=== PATIENT | female | born 1985 | race Caucasian/White ===

== ENCOUNTER 2017-08-31 05:25 | Inpatient (IN) | payer MEDICAID, OTHER ==
[2017-08-31] MEDS ORDERED: OXYTOCIN 30 UNITS/LR 500 ML IV (08:30)
[2017-08-31] MEDS ORDERED: METHYLERGONOVINE 0.2 MG INJ IM (08:30)
[2017-08-31] MEDS ORDERED: MISOPROSTOL 200 MCG TAB PR (08:30)
[2017-08-31] MEDS ORDERED: BUTORPHANOL 1 MG INJ IV (08:30)
[2017-08-31] MEDS ORDERED: BUTORPHANOL 2 MG INJ IV (08:30)
[2017-08-31] MEDS ORDERED: LIDOCAINE 1% (MPF) 30 ML INJ INJ (08:30)
[2017-08-31] MEDS ORDERED: CARBOPROST 250 MCG INJ IM (08:30)
[2017-08-31] MEDS: LACTATED RINGER'S 1,000 ML IV ×4 (08:36→13:13)
[2017-08-31 08:46] LABS: ADD MAN DIFF? NO
[2017-08-31 08:57] LABS: BASOPHILS % 0.3 % (0.0-2.0); EOSINOPHILS % 0.2 % (0.0-7.0); HEMATOCRIT 37.2 % (37.0-47.0); HEMOGLOBIN 11.7 g/dl (12.0-16.0); LYMPHOCYTES # 2.7 10^3/ul (0.8-2.9); LYMPHOCYTES % 20.7 % (15.0-51.0); MEAN CORPUSCULAR HEMOGLOBIN 27.4 pg (29.0-33.0); MEAN CORPUSCULAR HGB CONC 31.5 g/dl (32.0-37.0); MEAN CORPUSCULAR VOLUME 87.1 fl (82.0-101.0); MEAN PLATELET VOLUME 12.2 fl (7.4-10.4); MONOCYTE # 0.4 10^3/ul (0.3-0.9); MONOCYTES % 3.3 % (0.0-11.0); NEUTROPHIL # 9.7 10^3/ul (1.6-7.5); PLATELET COUNT 231 10^3/UL (140-415); RED BLOOD COUNT 4.27 10^6/ul (4.20-5.40); RED CELL DISTRIBUTION WIDTH 13.8 % (11.5-14.5)
[2017-08-31 09:08] LABS: INR 0.87; PROTIME 11.9 Sec (11.9-14.9); PT RATIO 0.9
[2017-08-31] MEDS ORDERED: FENTAnyl 2MCG/ML-ROPIV 0.2% 100 ML (10:20)
[2017-08-31] MEDS ORDERED: NALOXONE (0.4 MG/ML) INJ IV (14:00)
[2017-08-31] MEDS ORDERED: FENTAnyl 2MCG/ML-ROPIV 0.2% 100 ML BAG EPI (14:00)
[2017-08-31] MEDS: OXYTOCIN 30 UNITS/LR 500 ML IV ×3 (15:07→23:15)
[2017-08-31] MEDS ORDERED: OXYCODONE/ASPIRIN (4.88/325) TAB PO ×2 (16:30)
[2017-08-31] MEDS ORDERED: DIBUCAINE 1% 30 GM OINT PR (16:30)
[2017-08-31] MEDS ORDERED: ACETAMINOPHEN 325 MG TAB PO (16:30)
[2017-08-31] MEDS ORDERED: ONDANSETRON 4 MG INJ IV (16:30)
[2017-08-31] MEDS ORDERED: HYDROCODONE/APAP (5/325) TAB PO ×2 (16:30)
[2017-08-31] MEDS: BENZOCAINE 20% 56 ML SPRAY TOP (19:06)
[2017-08-31] MEDS: WITCH HAZEL/GLYCERIN PAD PR (19:06)
[2017-08-31] MEDS: LANOLIN 7 GM TUBE TOP (19:06)
[2017-08-31] MEDS: IBUPROFEN 600 MG TAB PO (19:07)
[2017-08-31 19:44] LABS: RAPID PLASMA REAGIN NONREACTIVE (NR)
[2017-08-31] MEDS: SENNA/DOCUSATE NA (8.6MG/50MG) TAB PO (21:14)
[2017-09-01] MEDS: IBUPROFEN 600 MG TAB PO ×5 (00:26→23:35)
[2017-09-01 08:11] LABS: ADD MAN DIFF? NO
[2017-09-01 08:17] LABS: WHITE BLOOD COUNT 10.7 10^3/ul (4.8-10.8)
[2017-09-01 08:17] LABS: BASOPHILS % 0.3 % (0.0-2.0); EOSINOPHILS % 0.2 % (0.0-7.0); HEMATOCRIT 29.1 % (37.0-47.0); HEMOGLOBIN 9.3 g/dl (12.0-16.0); LYMPHOCYTES # 2.7 10^3/ul (0.8-2.9); LYMPHOCYTES % 25.4 % (15.0-51.0); MEAN CORPUSCULAR HEMOGLOBIN 27.7 pg (29.0-33.0); MEAN CORPUSCULAR VOLUME 86.6 fl (82.0-101.0); MEAN PLATELET VOLUME 11.9 fl (7.4-10.4); MONOCYTE # 0.5 10^3/ul (0.3-0.9); MONOCYTES % 4.2 % (0.0-11.0); NEUTROPHIL # 7.4 10^3/ul (1.6-7.5); NEUTROPHILS % 69.2 % (39.0-77.0); PLATELET COUNT 159 10^3/UL (140-415); RED BLOOD COUNT 3.36 10^6/ul (4.20-5.40); RED CELL DISTRIBUTION WIDTH 13.9 % (11.5-14.5)
[2017-09-01] MEDS: SENNA/DOCUSATE NA (8.6MG/50MG) TAB PO ×2 (08:29→21:00)
[2017-09-02] MEDS: IBUPROFEN 600 MG TAB PO ×2 (05:52→11:57)
[2017-09-02] MEDS: MEASLES,MUMPS,RUBELLA VACCINE INJ SC* (09:00)
[2017-09-02] MEDS: SENNA/DOCUSATE NA (8.6MG/50MG) TAB PO (09:23)
== END 2017-09-02 13:00 | disposition home or self-care (01) | DRG 775 ==
LOC: OBT 05:25 → L-D 05:25 → OBT 08:00 → L-D 08:00 → PP1 17:01
PROVIDERS: Obstetrics & Gynecology
PROC: 10E0XZZ Delivery of Products of Conception, External Approach (ICD-10-PCS; principal; 2017-08-31)
PROC: 0HQ9XZZ Repair Perineum Skin, External Approach (ICD-10-PCS; 2017-08-31)
DX: O70.0 First degree perineal laceration during delivery (principal); Z3A.39 39 weeks gestation of pregnancy; Z37.0 Single live birth
CPT/HCPCS: 62319; 85025; 85610; 85730; 86592; 86850; 86900; 86901

== ENCOUNTER 2017-12-10 06:33 | Day surgery (SDC) | payer MEDICAID ==
[2017-12-10] MEDS: BUPIVACAINE 0.25%/EPI (SDV) 30 ML INJ INJ
[~2017-12-10 06:33] MED LIST: CEFAZOLIN 2 GM/50 ML (PMX) 50 ML IVPB; LACTATED RINGER'S 1,000 ML IV*; SOD CHLORIDE 0.9% 1,000 ML IV
[2017-12-10] MEDS ORDERED: BUPIVACAINE 0.25%/EPI (MDV) 50 ML VIAL INJ (06:51)
[2017-12-10] MEDS ORDERED: LIDOCAINE 2% (SDV) 5 ML INJ (07:00)
[2017-12-10] MEDS ORDERED: PROPOFOL 200 MG INJ (07:00)
[2017-12-10] MEDS ORDERED: ROCURONIUM 50 MG INJ (07:00)
[2017-12-10] MEDS ORDERED: BUPIVACAINE 0.5% (SDV) 30 ML INJ (07:00)
[2017-12-10] MEDS ORDERED: CEFAZOLIN 1 GM INJ (07:00)
[2017-12-10] MEDS ORDERED: HYDROmorphONE 2 MG/ML SYG (08:02)
[2017-12-10] MEDS ORDERED: ONDANSETRON 4 MG INJ (08:19)
[2017-12-10] MEDS ORDERED: DEXAMETHASONE 4 MG/ML 1 ML INJ (08:19)
[2017-12-10] MEDS ORDERED: MIDAZOLAM 1 MG/ML 2 ML INJ (08:22)
[2017-12-10] MEDS ORDERED: ROPIVACAINE 0.5 % 30 ML VIAL (08:37)
[2017-12-10] MEDS ORDERED: SUGAMMADEX SODIUM 200 MG/2 ML VIAL IV (08:47)
[2017-12-10] MEDS ORDERED: FENTAnyl 50 MCG/ML VIAL (09:17)
[2017-12-10] MEDS ORDERED: KETOROLAC 30 MG INJ (09:19)
[2017-12-10] MEDS: KETOROLAC 30 MG INJ IV (09:22)
== END 2017-12-10 10:35 | disposition home or self-care (01) ==
LOC: SDS 06:33
DX: Z30.2 Encounter for sterilization (principal)
CPT/HCPCS: 58670